=== PATIENT | male | born 1990 | race Caucasian/White ===

== ENCOUNTER 2020-10-21 14:42 | Emergency (ER) | payer OTHER ==
[2020-10-21 15:35] LABS: BILIRUBIN NEGATIVE (NEGATIVE); BLOOD 3+ Ery/uL (NEGATIVE); CLARITY CLEAR (CLEAR); COLOR YELLOW (YELLOW); GLUCOSE (U) NORMAL (NORMAL); LEUKOCYTES NEGATIVE Leu/uL (NEGATIVE); NITRITE NEGATIVE (NEGATIVE); PROTEIN NEGATIVE (NEGATIVE); SPECIFIC GRAVITY >=1.030 (1.001-1.030); UROBILINOGEN 0.2 mg/dL (0.2-1.0); pH 5.5 (5.0-9.0)
[2020-10-21 15:50] LABS: BASOPHIL 0.6 % (0-2); EOSINOPHIL 0.8 % (0-5); HCT 42.7 % (42.0-52.0); LYMPHOCYTE 15.2 % (15-48); MCH 28.3 pg (25.0-31.0); MCHC 32.8 g/dL (32.0-36.0); MCV 86.4 fL (78.0-100.0); MONOCYTE 7.6 % (0-12); MPV 10.4 fL (6.0-9.5); NEUTROPHIL 75.3 % (41-80); NRBC 0; PLT 202 K/uL (150-400); RBC 4.94 M/uL (4.70-6.00); RDW 12.4 % (11.5-14.0); WBC 9.7 K/uL (4.0-10.5)
[2020-10-21 15:54] LABS: URINARY RBC 20-50; URINARY WBC RARE
[2020-10-21 15:55] LABS: BACTERIA TRACE
[2020-10-21 15:56] LABS: MUCOUS MODERATE
[2020-10-21 16:07] LABS: ALBUMIN 3.5 g/dL (3.4-5.0); BILIRUBIN - TOTAL 0.3 mg/dL (0.2-1.0); BUN/CREAT RATIO (CALC) 17.9 RATIO; CREATININE 1.12 mg/dL (0.67-1.17); GLOBULIN (CALCULATION) 4.1 g/dL; TOTAL PROTEIN 7.6 g/dL (6.4-8.2)
[2020-10-21] MEDS ORDERED: NORCO 5-325 TA1 EACH PO (16:11)
[2020-10-21] MEDS ORDERED: FLOMAX 0.4 MG0.4 MG PO (16:11)
== END 2020-10-21 16:32 | disposition home or self-care (01) ==
LOC: FER 14:42
PROVIDERS: Emergency Medicine
DX: N13.2 Hydronephrosis with renal and ureteral calculous obstruction (principal); Z87.442 Personal history of urinary calculi; Z88.6 Allergy status to analgesic agent; Z88.1 Allergy status to other antibiotic agents
CPT/HCPCS: 36415; 80053; 81001; 85025; J1885

== ENCOUNTER 2021-10-31 06:09 | Day surgery (SDCO) | payer OTHER ==
[~2021-10-31] VITALS: Ht 182.9 cm; Wt 129.3 kg
[~2021-10-31 06:09] MED LIST: ACID REDUCER10 MG PO; FLOMAX 0.4 MG0.4 MG PO; NORCO 5-325 TA1 EACH PO; TUMS200 MG PO; [UNRECOGNIZED DRUG - OTHER] PO
[2021-10-31 07:13] LABS: HCT 47.2 % (42.0-52.0); HGB 15.9 g/dl (13.2-18.0); MCH 28.6 pg (25.0-31.0); MCHC 33.7 g/dL (32.0-36.0); MCV 84.9 fL (78.0-100.0); MPV 10.2 fL (6.0-9.5); RBC 5.56 M/uL (4.70-6.00); RDW 11.9 % (11.5-14.0); WBC 7.8 K/uL (4.0-10.5)
[2021-10-31 07:32] LABS: ALBUMIN 3.7 g/dL (3.4-5.0); BILIRUBIN - TOTAL 0.4 mg/dL (0.2-1.0); BUN/CREAT RATIO (CALC) 16.8 RATIO; CREATININE 1.01 mg/dL (0.67-1.17); GLOBULIN (CALCULATION) 4.6 g/dL; POTASSIUM 3.7 mmol/L (3.5-5.1); TOTAL PROTEIN 8.3 g/dL (6.4-8.2)
[2021-11-01 06:42] LABS: BASOPHIL 0.2 % (0-2); EOSINOPHIL 0.1 % (0-5); HGB 14.7 g/dl (13.2-18.0); LYMPHOCYTE 9.9 % (15-48); MCH 28.7 pg (25.0-31.0); MCHC 33.4 g/dL (32.0-36.0); MCV 85.8 fL (78.0-100.0); MONOCYTE 6.9 % (0-12); MPV 10.6 fL (6.0-9.5); NEUTROPHIL 82.4 % (41-80); NRBC 0; PLT 234 K/uL (150-400); RBC 5.13 M/uL (4.70-6.00); RDW 11.9 % (11.5-14.0); WBC 13.2 K/uL (4.0-10.5)
[2021-11-01] MEDS ORDERED: PANTOPRAZOLE SO40 MG PO (09:12)
== END 2021-11-01 11:12 | disposition home or self-care (01) ==
LOC: FAS 06:09 → FMS 10:36 → FAS 12:49 → FMS 12:50
PROVIDERS: Nurse Practitioner Acute Care; ADMIT Orthopaedic Surgery
DX: T17.918A Gastric contents in respiratory tract, part unspecified causing other injury, initial encounter (principal); S83.281A Other tear of lateral meniscus, current injury, right knee, initial encounter; K21.9 Gastro-esophageal reflux disease without esophagitis; E66.9 Obesity, unspecified; Z88.1 Allergy status to other antibiotic agents; Z88.6 Allergy status to analgesic agent; Z20.822 Contact with and (suspected) exposure to COVID-19; Z68.38 Body mass index [BMI] 38.0-38.9, adult; X58.XXXA Exposure to other specified factors, initial encounter; R00.0 Tachycardia, unspecified; D72.829 Elevated white blood cell count, unspecified
CPT/HCPCS: 36415; 71045; 80053; 85025; 93005; 94010; 94640; G0378; J1100; J1650; J1885; J2250; J2405; J2704; J3010; J7120

== ENCOUNTER → 2021-11-27 | Day surgery (SDC) | payer OTHER ==
[~2021-11-27] VITALS: Ht 182.9 cm; Wt 129.3 kg
[~2021-11-27] MED LIST changes: +PANTOPRAZOLE SO40 MG PO
== END | disposition home or self-care (01) ==
LOC: FAS 10:07
DX: M79.4 Hypertrophy of (infrapatellar) fat pad (principal); M17.11 Unilateral primary osteoarthritis, right knee; M25.461 Effusion, right knee; F31.9 Bipolar disorder, unspecified; Z87.891 Personal history of nicotine dependence; Z88.6 Allergy status to analgesic agent
CPT/HCPCS: J1100; J2250; J2405; J2704; J3010; J7120